=== PATIENT | male | born 2000 | race Caucasian/White ===

== ENCOUNTER 2019-03-17 23:58 | Emergency (ER) | payer OTHER ==
[~2019-03-17] VITALS: Ht 182.9 cm; Wt 95.5 kg
[2019-03-18] MEDS ORDERED: CETIRIZINE (ZyrTEC) 10 MG TAB PO ONE (07:15)
[2019-03-18] MEDS ORDERED: predniSONE 50 MG TAB PO ONE (07:15)
[2019-03-18] MEDS ORDERED: predniSONE 10 MG TAB PO ONE (07:15)
[2019-03-18] MEDS ORDERED: PRED10TA2 PO (08:40)
[2019-03-18 08:54] VITALS: BP 123/63
== END 2019-03-18 08:55 | disposition home or self-care (01) ==
LOC: M ED 23:58
DX: L50.0 Allergic urticaria (principal); W57.XXXA Bitten or stung by nonvenomous insect and other nonvenomous arthropods, initial encounter; Y92.89 Other specified places as the place of occurrence of the external cause